=== PATIENT | female | born 1970 | race Caucasian/White ===

== ENCOUNTER → 2017-02-25 | Outpatient (CLI) | payer OTHER ==
[~2017-02-25] MED LIST: ALBU8I INH; FLOV110A INH; PERC10TA27 PO; RANI150 PO; Z.0.BCPILL PO
== END ==
LOC: CLAB 12:26
PROVIDERS: ATTEND Urology
DX: N39.0 Urinary tract infection, site not specified (principal); B96.1 Klebsiella pneumoniae [K. pneumoniae] as the cause of diseases classified elsewhere
CPT/HCPCS: 87077; 87086; 87186

== ENCOUNTER 2017-06-24 15:10 | Emergency (ER) | payer OTHER ==
[~2017-06-24] VITALS: Ht 162.6 cm; Wt 60.0 kg
[~2017-06-24 15:10] MED LIST changes: -ALBU8I INH; +ALBUAER3 INH; +AZIT500T2 PO; -FLOV110A INH; +FLUTI44I INH; -PERC10TA27 PO; -RANI150 PO; -Z.0.BCPILL PO; +ZANT150T2 PO
[2017-06-24 15:12] VITALS: BP 168/88; PULSE 78; RESP 16; TEMP 98.2; O2SAT 99
--- NOTE | 2017-06-24 15:43 | RADRPT ---
EXAM DATE/TIME: 06/24/2017 15:29 [place] COMPARISON: No previous studies available for comparison. INDICATIONS : Patient complains of chest tightness. MEDICAL HISTORY : Asthma. SURGICAL HISTORY : None. ENCOUNTER: Initial ACUITY: 1 day PAIN SCORE: 4/10 LOCATION: chest FINDINGS: PA and lateral views of the chest demonstrate the lungs to be symmetrically aerated without evidence of mass, infiltrate or effusion. The cardiomediastinal contours are unremarkable. Osseous structure s are intact. CONCLUSION: No acute disease. Delvin Gusman MD FACR on June 24, 2017 at 15:40 Board Certified Radiologist. This report was verified electronically.
[2017-06-24 16:09] LABS: AUTOMATED NEUTROPHIL # 3.2 TH/MM3 (1.8-7.7); BASOPHIL # 0.1 TH/MM3 (0-0.2); BASOPHIL % 2.4 % (0.0-2.0); EOSINOPHIL # 0.1 TH/MM3 (0-0.4); EOSINOPHIL % 1.6 % (0.0-4.0); HEMATOCRIT 37.3 % (35.0-46.0); HEMOGLOBIN 12.6 GM/DL (11.6-15.3); LYMPH % 23.5 % (9.0-44.0); LYMPHOCYTE # 1.2 TH/MM3 (1.0-4.8); MEAN CELL VOLUME 87.6 FL (80.0-100.0); MEAN CORPUSCULAR HEMOGLOBIN 29.7 PG (27.0-34.0); MEAN CORPUSCULAR HGB CONC 33.9 % (32.0-36.0); MEAN PLATELET VOLUME 8.9 FL (7.0-11.0); MONO % 9.3 % (0.0-8.0); MONOCYTE # 0.5 TH/MM3 (0-0.9); NEUT % 63.2 % (16.0-70.0); PLATELET COUNT 208 TH/MM3 (150-450); RED BLOOD COUNT 4.26 MIL/MM3 (4.00-5.30); RED CELL DISTRIBUTION WIDTH 13.1 % (11.6-17.2)
[2017-06-24] MEDS ORDERED: ALPR.25 PO (16:15)
[2017-06-24 16:16] LABS: BICARBONATE 25.4 MEQ/L (21.0-32.0); BLOOD UREA NITROGEN 17 MG/DL (7-18); CALCIUM 8.6 MG/DL (8.5-10.1); CHLORIDE 103 MEQ/L (98-107); CREATININE 0.67 MG/DL (0.50-1.00); GLOMERULAR FILTRATION RATE 95 ML/MIN (>89); GLUCOSE,RANDOM 86 MG/DL (74-106); MAGNESIUM 2.3 MG/DL (1.5-2.5); SODIUM (NA) 136 MEQ/L (136-145)
[2017-06-24 16:18] LABS: TROPONIN I LESS THAN 0.02 NG/ML (0.02-0.05)
--- NOTE | 2017-06-24 16:45 | PD ---
HPI Chief Complaint: Chest Pain Time Seen by Provider: 15:43 Travel History International Travel<30 days: No Contact w/Intl Traveler<30days: No Traveled to known affect area: No History of Present Illness HPI 46-year-old female with PMH of anxiety presents to the ED for evaluation of 2 week history of substernal chest pressure and tingling and numbness of the right arm. Chest pressure is constant, no alleviating or exacerbating factors reported. Patient endorses intermittent palpitations which she associates with anxiety. She denies shortness of breath, nausea, vomiting. She's never smoked. She states that she is very active, does cross fit. She endorses history of ID and her grandmother at age 51. She endorses several social stressors including a stressful job, living with her ex-, raising 2 small children. She states that she is prescribed Xanax for her anxiety but does not like to take the medication. She has follow-up with her primary care at 8:30 tomorrow morning. PFSH Past Medical History Anxiety: Yes Cardiovascular Problems: No Endocrine: No Gastrointestinal Disorders: Yes (REFLUX) Genitourinary: No Hepatitis: No Hiatal Hernia: No Hypertension: No Immune Disorder: No Musculoskeletal: Yes (CERVICAL , HERNIATED DISC) Neurologic: No Psychiatric: No Respiratory: Yes (ASTHMA) Influenza Vaccination: Yes ?: Not Past Surgical History Abdominal Surgery: No Body Medical Devices: BREAST IMPLANTS Ear Surgery: No Endocrine Surgery: No Eye Surgery: No Genitourinary Surgery: No Gynecologic Surgery: No Oral Surgery: No Thoracic Surgery: Yes (BREAST AUGMENTATION) Other Surgery: Yes Social History Alcohol Use: Yes (OCC) Tobacco Use: No Substance Use: No Allergies-Medications (Allergen,Severity, Reaction): Coded Allergies: Sulfa (Sulfonamide Antibiotics) (Verified Allergy, Severe, Hives, 06/24/17) ezetimibe (Verified Allergy, Severe, Hotflash, 06/24/17) BLISTERS ketoconazole (Verified Allergy, Severe, Swelling, 06/24/17) ORAL penicillin G (Verified Allergy, Severe, Hives, 06/24/17) Reported Meds & Prescriptions Reported Meds & Active Scripts Active Reported Xanax (Alprazolam) 0.25 Mg Tab 0.25 Mg PO Q8H PRN Review of Systems Except as stated in HPI: all other systems reviewed are Neg Physical Exam Narrative GENERAL: Well-nourished, well-developed anxious-appearing white female in no acute distress. SKIN: Focused skin assessment warm/dry. HEAD: Normocephalic. EYES: No scleral icterus. No injection or drainage. NECK: Supple, trachea midline. No JVD or lymphadenopathy. No midline tenderness to palpation. Patient retains full, active, painless ROM of the neck. CARDIOVASCULAR: Regular rate and rhythm without murmurs, gallops, or rubs. RESPIRATORY: Breath sounds clear and equal bilaterally. No accessory muscle use. GASTROINTESTINAL: Abdomen soft, non-tender, nondistended. Active bowel sounds. MUSCULOSKELETAL: No cyanosis, or edema. 5/5 in the right upper extremity muscle groups. Neurovascularly intact in the distal right upper extremity. NEUROLOGICAL: Awake and alert. Cranial nerves II through XII intact. Motor and sensory grossly within normal limits. Five out of 5 muscle strength in all muscle groups. Normal speech. BACK: Nontender without obvious deformity. No CVA tenderness. Data Data Last Documented VS Vital Signs Date Time Temp Pulse Resp B/P (MAP) Pulse Ox O2 Delivery O2 Flow Rate FiO2 06/24/17 18:05 06/24/17 15:12 98.2 78 16 99 Orders Orders Electrocardiogram (06/24/17 15:16) Basic Metabolic Panel (Bmp) (06/24/17 15:16) Ckmb (Isoenzyme) Profile (06/24/17 15:16) Complete Blood Count With Diff (06/24/17 15:16) Magnesium (Mg) (06/24/17 15:16) Prothrombin Time / Inr (Pt) (06/24/17 15:16) Act Partial Throm Time (Ptt) (06/24/17 15:16) Troponin I (06/24/17 15:16) Chest, Pa & Lat (06/24/17 15:16) CKMB (06/24/17 15:25) CKMB% (06/24/17 15:25) Troponin I (06/24/17 16:55) Electrocardiogram (06/24/17 ) Ckmb (Isoenzyme) Profile (06/24/17 16:55) Ed Discharge Order (06/24/17 17:46) Labs Laboratory Tests Test 06/24/17 15:25 06/24/17 17:00 White Blood Count 5.0 TH/MM3 Red Blood Count 4.26 MIL/MM3 Hemoglobin 12.6 GM/DL Hematocrit 37.3 % Mean Corpuscular Volume 87.6 FL Mean Corpuscular Hemoglobin 29.7 PG Mean Corpuscular Hemoglobin Concent 33.9 % Red Cell Distribution Width 13.1 % Platelet Count 208 TH/MM3 Mean Platelet Volume 8.9 FL Neutrophils (%) (Auto) 63.2 % Lymphocytes (%) (Auto) 23.5 % Monocytes (%) (Auto) 9.3 % Eosinophils (%) (Auto) 1.6 % Basophils (%) (Auto) 2.4 % Neutrophils # (Auto) 3.2 TH/MM3 Lymphocytes # (Auto) 1.2 TH/MM3 Monocytes # (Auto) 0.5 TH/MM3 Eosinophils # (Auto) 0.1 TH/MM3 Basophils # (Auto) 0.1 TH/MM3 CBC Comment DIFF FINAL Differential Comment Prothrombin Time 10.0 SEC Prothromb Time International Ratio 1.0 RATIO Activated Partial Thromboplast Time 27.3 SEC Blood Urea Nitrogen 17 MG/DL Creatinine 0.67 MG/DL Random Glucose 86 MG/DL Calcium Level 8.6 MG/DL Magnesium Level 2.3 MG/DL Sodium Level 136 MEQ/L Potassium Level 3.6 MEQ/L Chloride Level 103 MEQ/L Carbon Dioxide Level 25.4 MEQ/L Anion Gap 8 MEQ/L Estimat Glomerular Filtration Rate 95 ML/MIN Total Creatine Kinase 136 U/L 127 U/L Creatine Kinase MB 1.7 NG/ML Troponin I LESS THAN 0.02 NG/ML LESS THAN 0.02 NG/ML MDM Medical Decision Making Medical Screen Exam Complete: Yes Emergency Medical Condition: Yes Differential Diagnosis anxiety versus chest pain versus radiculopathy versus other Narrative Course 46-year-old female with PMH of anxiety presents to the ED for evaluation of 2 week history of substernal chest pressure and tingling and numbness of the right arm. Chest pressure is constant. Patient endorses intermittent palpitations which she associates with anxiety. She denies shortness of breath , nausea, vomiting. Family history of ID and her grandmother at age 50. She endorses several social stressors. She is prescribed Xanax for her anxiety but does not like to take it. Vitals reviewed. On exam this is an anxious white female in no acute distress. There is no appreciable M/R/G. Chest CT AB. No focal neuro deficits in the upper extremities. No midline tenderness of the neck or limitations to range of motion. EKG rate 64, sinus rhythm. Normal intervals. Normal axis. No ST changes. Reviewed by Dr. Menard CXR: No acute disease. Cardiac enzymes negative 1. CBC, CMP, coags unremarkable. I discussed the workup with the patient. I recommended that she stay for serial cardiac enzymes and possible stress test. Patient states that she does not want to be admitted to the hospital. She states that she has close follow- up with her primary care provider scheduled for 8:30 tomorrow morning. Second set of cardiac enzymes and EKG were ordered. EKG rate 58, sinus bradycardia, normal intervals. Normal axis. No ST changes. Reviewed by Dr. Menard Cardiac enzymes negative 2 I suspect the source of the patient's symptoms are anxiety. I offered to prescribe her Vistaril which she declines. She is instructed to follow-up with her primary care provider as planned, seek valuation from a cable layer, return for worsening symptoms. She indicated understanding of the instructions. She is stable and discharged home. Diagnosis Primary Impression: Anxiety Additional Impression: Atypical chest pain Referrals: [facility] Patient Instructions: Anxiety (ED), Chest Pain (ED), General Instructions Additional Instructions: Rest, hydrate. Avoid known stressors as possible. Follow-up with your doctor tomorrow morning as planned. Return to the ED for any urgent or emergent medical condition. Disposition: 01 DISCHARGE HOME Condition: Stable Tracy oBwer Jun 24, 2017 16:45
[2017-06-24 17:40] LABS: TROPONIN I LESS THAN 0.02 NG/ML (0.02-0.05)
--- NOTE | 2017-06-24 17:46 | PD ---
Physical Exam Date Seen by Provider: Jun 24, 2017 Time Seen by Provider: 16:00 Narrative I, Dr. Shelton, have reviewed the advance practice practitioner's documentation and am in agreement, met with the patient face to face, made the diagnosis, and the medical decision making was done by me. *My assessment and Findings: Patient seen and evaluated with PA, please see PA note for further details. She is here with chest discomfort and anxiety, apparently has had some life stressors recently. EKG did not show any signs of acute dysrhythmias or ST changes. Lab work and cardiac enzymes are largely unremarkable. Laboratory Tests Test 06/24/17 15:25 06/24/17 17:00 Monocytes (%) (Auto) 9.3 % (0.0-8.0) Basophils (%) (Auto) 2.4 % (0.0-2.0) Troponin I LESS THAN 0.02 NG/ML LESS THAN 0.02 NG/ML Last 24 hours Impressions Chest X-Ray 06/24/17 1516 Signed Impressions: Service Date/Time: Saturday, June 24, 2017 15:29 - CONCLUSION: No acute disease. Delvin Gusman MD FACR Vital signs are stable. 2 sets of cardiac enzymes were negative. At this point , I have discussed the findings with her and have offered to admit her to chest pain center for further evaluation of chest pain but the patient is declining at this time stating that she thinks is more her anxiety. She should follow-up with her primary care physician for further evaluation as an outpatient in this case. Return for new issues as needed. Data Data Last Documented VS Vital Signs Date Time Temp Pulse Resp B/P (MAP) Pulse Ox O2 Delivery O2 Flow Rate FiO2 06/24/17 15:12 98.2 78 16 168/88 (114) 99 Orders Orders Electrocardiogram (06/24/17 15:16) Basic Metabolic Panel (Bmp) (06/24/17 15:16) Ckmb (Isoenzyme) Profile (06/24/17 15:16) Complete Blood Count With Diff (06/24/17 15:16) Magnesium (Mg) (06/24/17 15:16) Prothrombin Time / Inr (Pt) (06/24/17 15:16) Act Partial Throm Time (Ptt) (06/24/17 15:16) Troponin I (06/24/17 15:16) Chest, Pa & Lat (06/24/17 15:16) CKMB (06/24/17 15:25) CKMB% (06/24/17 15:25) Troponin I (06/24/17 16:55) Electrocardiogram (06/24/17 ) Ckmb (Isoenzyme) Profile (06/24/17 16:55) Labs Laboratory Tests Test 06/24/17 15:25 06/24/17 17:00 White Blood Count 5.0 TH/MM3 Red Blood Count 4.26 MIL/MM3 Hemoglobin 12.6 GM/DL Hematocrit 37.3 % Mean Corpuscular Volume 87.6 FL Mean Corpuscular Hemoglobin 29.7 PG Mean Corpuscular Hemoglobin Concent 33.9 % Red Cell Distribution Width 13.1 % Platelet Count 208 TH/MM3 Mean Platelet Volume 8.9 FL Neutrophils (%) (Auto) 63.2 % Lymphocytes (%) (Auto) 23.5 % Monocytes (%) (Auto) 9.3 % Eosinophils (%) (Auto) 1.6 % Basophils (%) (Auto) 2.4 % Neutrophils # (Auto) 3.2 TH/MM3 Lymphocytes # (Auto) 1.2 TH/MM3 Monocytes # (Auto) 0.5 TH/MM3 Eosinophils # (Auto) 0.1 TH/MM3 Basophils # (Auto) 0.1 TH/MM3 CBC Comment DIFF FINAL Differential Comment Prothrombin Time 10.0 SEC Prothromb Time International Ratio 1.0 RATIO Activated Partial Thromboplast Time 27.3 SEC Blood Urea Nitrogen 17 MG/DL Creatinine 0.67 MG/DL Random Glucose 86 MG/DL Calcium Level 8.6 MG/DL Magnesium Level 2.3 MG/DL Sodium Level 136 MEQ/L Potassium Level 3.6 MEQ/L Chloride Level 103 MEQ/L Carbon Dioxide Level 25.4 MEQ/L Anion Gap 8 MEQ/L Estimat Glomerular Filtration Rate 95 ML/MIN Total Creatine Kinase 136 U/L 127 U/L Creatine Kinase MB 1.7 NG/ML Troponin I LESS THAN 0.02 NG/ML LESS THAN 0.02 NG/ML [facility] Medical Record Reviewed: Yes Supervised Visit with YAJAIRA: Yes Diagnosis Primary Impression: Atypical chest pain Disposition: 01 DISCHARGE HOME Condition: Stable Lu Shelton MD Jun 24, 2017 17:46
--- NOTE | 2017-06-25 14:37 | EKG ---
Date Performed: 06/24/2017 Time Performed: 15:21:58 PTAGE: 46 years EKG: Sinus rhythm NORMAL ECG INTERPRETATION BASED ON A DEFAULT AGE OF 41 YEARS NO PREVIOUS TRACING DOCTOR: Justin Schafer Interpretating Date/Time 06/25/2017 14:31:10
--- NOTE | 2017-06-25 14:55 | EKG ---
Date Performed: 06/24/2017 Time Performed: 17:04:45 PTAGE: 46 years EKG: SINUS BRADYCARDIA BORDERLINE ECG PREVIOUS TRACING : 06/24/2017 15.21 Since the prior tracing, there has been no significant cristina DOCTOR: Justin Schafer Interpretating Date/Time 06/25/2017 14:48:13
== END 2017-06-24 18:05 | disposition home or self-care (01) ==
LOC: NEPC 15:10
DX: R07.89 Other chest pain (principal); R20.2 Paresthesia of skin; R20.0 Anesthesia of skin; R00.2 Palpitations; R00.1 Bradycardia, unspecified; F41.9 Anxiety disorder, unspecified; K21.9 Gastro-esophageal reflux disease without esophagitis; J45.909 Unspecified asthma, uncomplicated; Z88.2 Allergy status to sulfonamides
CPT/HCPCS: 71046; 80048; 82550; 82552; 83735; 84484; 85025; 85610; 85730; 93005; 99285